=== PATIENT | female | born 1990 | race Caucasian/White ===

== ENCOUNTER → 2020-05-25 14:51 | Outpatient (BNVA) | payer BC, SELFPAY | PROVIDERS: Visit Provider Nurse Practitioner Family | DX: J06.9 Acute upper respiratory infection, unspecified (principal) | CPT/HCPCS: 87400; 87635 ==

== ENCOUNTER → 2024-06-01 10:33 | Outpatient (BNVA) | payer OTHER, SELFPAY | PROVIDERS: PCP Nurse Practitioner Family; Visit Provider Nurse Practitioner Family | DX: Z01.89 Encounter for other specified special examinations (principal) | CPT/HCPCS: 80053; 85025 ==

== ENCOUNTER → 2024-07-19 15:27 | Outpatient (BNVA) | payer OTHER, SELFPAY | PROVIDERS: PCP Nurse Practitioner Family; Visit Provider Nurse Practitioner Women's Health | DX: Z01.419 Encounter for gynecological examination (general) (routine) without abnormal findings (principal) | CPT/HCPCS: 87624 ==

== ENCOUNTER → 2024-10-13 08:44 | Outpatient (BNVA) | payer OTHER, SELFPAY | PROVIDERS: PCP Nurse Practitioner Family; Visit Provider Nurse Practitioner Women's Health | DX: N92.6 Irregular menstruation, unspecified (principal) | CPT/HCPCS: 76830 ==

== ENCOUNTER → 2025-01-19 11:02 | Outpatient (BNVA) | payer OTHER, SELFPAY | PROVIDERS: PCP Nurse Practitioner Family; Visit Provider Nurse Practitioner Family | DX: E55.9 Vitamin D deficiency, unspecified (principal); Q61.3 Polycystic kidney, unspecified; Z71.89 Other specified counseling; Z79.899 Other long term (current) drug therapy | CPT/HCPCS: 80053; 80061; 81003; 82306; 83036; 84443; 85025 ==

== ENCOUNTER → 2025-01-26 12:02 | Outpatient (BNVA) | payer OTHER, SELFPAY | PROVIDERS: PCP Nurse Practitioner Family; Visit Provider Nurse Practitioner Family | DX: R80.9 Proteinuria, unspecified (principal) | CPT/HCPCS: 82570; 84156 ==

== ENCOUNTER → 2025-03-02 13:01 | Outpatient (BNVA) | payer OTHER, SELFPAY | PROVIDERS: PCP Nurse Practitioner Family; Visit Provider Nurse Practitioner Family | DX: L57.8 Other skin changes due to chronic exposure to nonionizing radiation (principal); D22.5 Melanocytic nevi of trunk; L81.4 Other melanin hyperpigmentation; D23.61 Other benign neoplasm of skin of right upper limb, including shoulder | CPT/HCPCS: 11104; 99203 ==

== ENCOUNTER → 2025-03-11 11:35 | Outpatient (BNVA) | payer OTHER, SELFPAY | PROVIDERS: PCP Nurse Practitioner Family; Visit Provider Nurse Practitioner Family | DX: R80.9 Proteinuria, unspecified (principal); N30.01 Acute cystitis with hematuria | CPT/HCPCS: 81003; 82043 ==

== ENCOUNTER 2025-07-14 12:38 | Outpatient (CLI) | payer OTHER, SELFPAY ==
--- NOTE | 2025-07-14 13:00 | MR_ITS ---
WS: [id number] MRI LUMBAR SPINE NONCONTRAST HISTORY: LEFT leg pain and numbness. COMPARISON: None available. TECHNIQUE: Sagittal and axial multisequence imaging is submitted. Slight reversal of the normal cervical lordosis. There are a few small shallow disc protrusions in the cervical spine. Normal lumbar alignment with no compression fractures or marrow edema. Mild disc space desiccation and narrowing at L5-S1. The remaining discs are normal. Conus terminates normally at T12-L1. L1-L2: Normal. L2-L3: Normal. L3-L4: Normal. L4-L5: Minimal disc bulging. Mild ligamentum flavum and facet arthritis. L5-S1: Large central to LEFT paracentral disc protrusion. Disc protrusion extends into the LEFT lateral recess with displacement and contact on the S1 nerve root. Disc protrusion measures 11 x 7 mm. No disc contact on the RIGHT S1 nerve root. No significant foraminal stenosis. Numerous cysts within each kidney. The kidneys are enlarged. Findings of polycystic kidney disease. There are a few very small cysts within the visualized liver also. MR/MR lumbar spine wo con* [id number] IMPRESSION: 1. Large central to LEFT paracentral disc protrusion extending into the latera l recess at L5-S1. Disc contacts and displaces the LEFT S1 nerve root. 2. No additional disc protrusions or stenosis. 3. Polycystic kidney disease. A few additional cysts within the liver identifi ed.
== END 2025-07-14 12:39 | disposition home or self-care (01) ==
LOC: RAD 12:43
PROVIDERS: PCP Nurse Practitioner Family; Visit Provider Nurse Practitioner Family
DX: M51.362 Other intervertebral disc degeneration, lumbar region with discogenic back pain and lower extremity pain (principal)
CPT/HCPCS: 72148

== ENCOUNTER → 2025-07-19 14:55 | Outpatient (BNVA) | payer OTHER, SELFPAY | PROVIDERS: PCP Nurse Practitioner Family; Visit Provider Orthopaedic Surgery | DX: M51.362 Other intervertebral disc degeneration, lumbar region with discogenic back pain and lower extremity pain (principal) | CPT/HCPCS: 99203 ==